=== PATIENT | female | born 1965 | race Caucasian/White ===

== ENCOUNTER 2017-05-26 08:37 | Outpatient (CLI) | END 2017-05-26 08:38 | disposition home or self-care (01) | LOC: RAD 08:37 | PROVIDERS: ATTEND Emergency Medicine | DX: Z12.31 Encounter for screening mammogram for malignant neoplasm of breast (principal) | CPT/HCPCS: 77067 ==

== ENCOUNTER 2017-05-29 07:04 | Outpatient (CLI) ==
[2017-05-29 07:20] LABS: BASOPHILS # (AUTO) 0.1 K/uL (0-0.2); BASOPHILS % (AUTO) 2.1 % (0.0-3.0); EOSINOPHILS % (AUTO) 15.6 % (0.0-7.0); HEMATOCRIT 42.7 % (37.0-47.0); HEMOGLOBIN 14.7 g/dl (12.0-16.0); IMMATURE GRANULOCYTE % (AUTO) 0.3 % (0.0-5.0); LYMPHOCYTES # (AUTO) 1.7 K/uL (0.60-3.4); LYMPHOCYTES % (AUTO) 27.5 (10.0-50.0); MEAN CORPUSCULAR HEMOGLOBIN 30.9 pg (27.0-31.0); MEAN CORPUSCULAR HGB CONC 34.4 (31.8-35.4); MEAN CORPUSCULAR VOLUME 89.9 fl (81.0-99.0); MONOCYTES # (AUTO) 0.4 K/uL (0.4-2.0); NEUTROPHILS % (AUTO) 47.5; PLATELET COUNT 289 10^3/uL (140-440); RED BLOOD COUNT 4.75 10^6/ul (4.20-5.40); WHITE BLOOD COUNT 6.29 K/ul (4.6-10.2)
[2017-05-29 08:00] LABS: ALBUMIN 3.5 g/dL (3.4-5.0); ALBUMIN/GLOBULIN RATIO 1.03; ANION GAP 14.1; BILIRUBIN,TOTAL 0.47 mg/dL (0.00-1.20); BUN/CREATININE RATIO 13.92; CALCIUM 9.5 mg/dL (8.2-10.2); CHOL/HDL RATIO 4.4 (4.5-5.5); CREATININE 0.79 mg/dL (0.60-1.30); POTASSIUM 4.1 mmol/L (3.5-5.10); TOTAL PROTEIN 6.9 g/dL (6.4-8.2)
== END 2017-05-29 07:05 | disposition home or self-care (01) ==
LOC: LAB 07:04
PROVIDERS: ATTEND Emergency Medicine
DX: E78.5 Hyperlipidemia, unspecified (principal); I10 Essential (primary) hypertension; E66.9 Obesity, unspecified; G43.109 Migraine with aura, not intractable, without status migrainosus
CPT/HCPCS: 36415; 80053; 80061; 84443; 85025

== ENCOUNTER 2017-10-26 07:21 | Outpatient (CLI) | END 2017-10-26 07:22 | disposition home or self-care (01) | LOC: LAB 07:21 | PROVIDERS: ATTEND Internal Medicine Rheumatology | DX: E55.9 Vitamin D deficiency, unspecified (principal); E53.8 Deficiency of other specified B group vitamins; R53.83 Other fatigue; M19.90 Unspecified osteoarthritis, unspecified site; M79.1 Myalgia; E83.42 Hypomagnesemia; M32.9 Systemic lupus erythematosus, unspecified | CPT/HCPCS: 36415; 82306; 82550; 82553; 82607; 82746; 83735; 84550; 85651; 85705; 86038; 86160; 86162; 86200; 86225; 86226; 86235; 86430 ==

== ENCOUNTER 2017-11-17 15:46 | Outpatient (CLI) | payer OTHER ==
--- NOTE | 2017-11-17 16:29 | DI ---
EXAM: Radiographs, right shoulder HISTORY: Right shoulder pain. COMPARISON: None available. TECHNIQUE: Three views. FINDINGS: Bone mineralization is normal. There is no fracture or dislocation. Mild acromioclavicul ar joint space narrowing and spurring noted. No erosions are seen. No focal soft tissue abnormality is seen. IMPRESSION: Mild acromioclavicular osteoarthritis.
--- NOTE | 2017-11-17 16:29 | DI ---
EXAM: Radiographs, right knee HISTORY: Right knee pain. COMPARISON: None available. TECHNIQUE: Two views. FINDINGS: Bone mineralization is normal. There is no fracture or dislocation. The joint spaces are maintained. No focal soft tissue abnormality is seen. IMPRESSION: No abnormality of the right knee.
--- NOTE | 2017-11-17 16:29 | DI ---
EXAM: Radiographs, left shoulder HISTORY: Left shoulder pain. COMPARISON: None available. TECHNIQUE: Three views. FINDINGS: Bone mineralization is normal. No fracture or dislocation identified. Mild acromioclavic ular joint space narrowing and spurring noted. No erosions are seen. Soft tissues are unremarkable. IMPRESSION: Mild acromioclavicular osteoarthritis.
--- NOTE | 2017-11-17 16:30 | DI ---
EXAM: Radiographs, left knee HISTORY: Left knee pain. COMPARISON: None available. TECHNIQUE: Two views. FINDINGS: Bone mineralization is normal. Joint spaces are maintained although there is mild medial compartment marginal osteophyte formation. No erosions are seen. Soft tissues are unremarkable. IMPRESSION: Mild medial compartment osteoarthritis.
== END 2017-11-17 15:47 | disposition home or self-care (01) ==
LOC: RAD 15:46
PROVIDERS: ATTEND Internal Medicine Rheumatology
DX: M25.50 Pain in unspecified joint (principal)

== ENCOUNTER 2017-12-19 15:57 | Outpatient (CLI) | payer OTHER | END 2017-12-19 15:58 | disposition home or self-care (01) | LOC: LAB 15:57 | PROVIDERS: ATTEND Internal Medicine Rheumatology | DX: Z51.81 Encounter for therapeutic drug level monitoring (principal) | CPT/HCPCS: 36415; 80048; 80076; 85027 ==

== ENCOUNTER 2017-12-22 15:01 | Outpatient (CLI) ==
--- NOTE | 2017-12-22 16:13 | DI ---
Exam: Two x-rays of the right hand. Comparison: None available. Reason for exam: Pain. FINDINGS: No acute fracture or malalignment. The joint spaces are well maintained. No unexplained calcific soft tissue density or radiopaque retained foreign body. Impression: No acute fracture or malalignment in the right hand
--- NOTE | 2017-12-22 16:15 | DI ---
EXAM: Right wrist two view HISTORY: Pain COMPARISON: None FINDINGS: The bones are normal. The joints are normal. No focal soft tissue abnormality. IMPERSSION: Normal examination.
--- NOTE | 2017-12-22 16:18 | DI ---
EXAM: Left wrist two view HISTORY: Pain COMPARISON: None FINDINGS: The bones are normal. The joints are normal. No focal soft tissue abnormality. IMPERSSION: Normal examination.
--- NOTE | 2017-12-22 16:42 | MRI ---
EXAM: MRI lumbar spine without IV contrast. DATE: 12/22/2017. HISTORY: Lumbar back pain. TECHNIQUE: Sagittal and axial T1W and T2W sequences of the lumbar spine along with sagittal IR and c oronal T2W sequences were obtained using 1.2 Cuca magnet. No IV contrast. COMPARISON: None. FINDINGS: There are five umq-ata-umblplp lumbar vertebral. Minor rightward curvature of the lumbar spine is observed. A 2.2 mm anterior subluxation of L4 relative to L5 is noted. No other subluxatio n, acute fracture, osseous malignancy, or pars interarticularis defect is identified. Lumbar vertebr a are normal in height. Bone marrow signal is normal. Lumbar intervertebral discs are normal in hei ght. No acute sacral fracture or stress reaction is identified. SI joints are unremarkable. Within the spinal canal and the S2 level, there is a T2W bright, T1W dark, 14 x 18 mm Tarlov cyst. Conus m edullaris terminates at L1-2. Visible spinal cord is normal. No retroperitoneal lymphadenopathy, paraspinal mass, or aortic aneurysm is detected. Psoas muscles a re normal. Posterior paraspinal muscles are symmetric bilaterally. A T2W bright, T1W dark, 6 mm foc us posterior to the right L5-S1 facet is likely the synovial cyst vs ganglion cyst. Visible portions of the liver, spleen, adrenal glands and kidneys are limited by breathing motion artifacts, but reve al no distinct neoplasm. Segmental analysis: T11-12: Normal. T12-L1: Minimal posterior disc bulge and mild left facet arthropathy do not cause central stenosis o r foraminal stenosis. L1-2: Minimal posterior to foraminal disc bulge causes minimal bilateral foraminal encroachment. No central canal stenosis. L2-3: Minor posterior disc bulge, abundant dorsal epidural fat, and mild facet arthropathy cause mil d central canal stenosis. Each foramen is patent. L3-4: Minor concentric disc bulge, abundant dorsal epidural fat, and mild facet arthropathy cause mo derate/marked central canal stenosis and slight narrowing at the opening to the right foramen. L4-5: Minor anterior subluxation of L4, small concentric disc bulge, moderate bilateral facet arthro ines, moderate ligamentum flavum hypertrophy and abundant dorsal epidural fat cause marked central c anal stenosis and moderate narrowing at the opening to each foramen. There are small bilateral facet effusions. L5-S1: Normal, except for mild bilateral facet arthropathy. IMPRESSIONS: 1. L-spine minor rightward curvature, minor facet arthropathy, and multilevel minor DDD. 2. Multilevel foraminal narrowing, most marked at L4-5. No nerve root compression. 3. Multilevel central canal stenoses (L2-3: Mild. L3-4: Moderate/marked. L4-5: Marked). 4. Benign Tarlov cyst in the sacral canal at S2. 5. Synovial cyst vs ganglion cyst near the right L5-S1 facet.
--- NOTE | 2017-12-22 16:52 | DI ---
EXAM: Left hand two view HISTORY: Pain COMPARISON: None FINDINGS: The bones are normal. The joints are normal. No focal soft tissue abnormality. IMPERSSION: Normal examination.
== END 2017-12-22 15:02 | disposition home or self-care (01) ==
LOC: RAD 15:01
PROVIDERS: ATTEND Internal Medicine Rheumatology
DX: M54.2 Cervicalgia (principal); M54.5 Low back pain; R51 Headache; M19.90 Unspecified osteoarthritis, unspecified site

== ENCOUNTER 2017-12-26 15:10 | Outpatient (CLI) | payer OTHER ==
--- NOTE | 2017-12-27 14:40 | MRI ---
EXAM: Cervical spine MRI without contrast. HISTORY: Neck pain. COMPARISON: None. TECHNIQUE: Multiplanar, multisequence MR images were acquired of the cervical spine without contrast . FINDINGS: The craniocervical junction is normal and the cervical cord is unremarkable. Canal diamet er is developmentally narrow. There is minor mid cervical dextroscoliosis centered at C5-6 and strai ghtening of the usual cervical lordosis. There is 2 mm anterolisthesis of C3 on C4 and minor degener ative endplate changes. There is osteophytosis with disc space narrowing and degenerative endplate ch anges at C4-5 and C5-6. Ventral spondylosis present at C6-7. The cervical vertebra are normal in he ight and intrinsic bone marrow signal. There are no paravertebral masses. Visualized lung apices ar e clear. C2-3: The intervertebral disc is normal. Mild left hypertrophic facet arthropathy is present with m ild left neural foraminal stenosis. C3-4: There is anterolisthesis of C3 on C4 and there is a posterior disc osteophyte complex that is more prominent in the midline. Moderate left hypertrophic facet arthropathy is present with small de generative cysts and irregularity of the articular surfaces. There is mild spinal stenosis and mild right and moderately severe left neural foraminal stenosis. AP diameter of the thecal sac is 9 mm. C4-5: There is a diffuse disc osteophyte complex with a more focal right paracentral component and a small disc protrusion that indents the right cord without edema. Bilateral uncovertebral hypertrophy and mild left hypertrophic facet arthropathy is present. There is mild spinal stenosis and severe l eft and mild to moderate right neural foraminal stenosis. AP diameter of the thecal sac is 7.9 mm. C5-6: There is a posterior disc osteophyte complex and broad-based superimposed central disc protrus ion that mildly indents the cervical cord. Bilateral uncovertebral hypertrophy is present and there is mild to moderate central canal stenosis and probably moderately severe bilateral foraminal stenosi s. AP diameter thecal sac is 6 mm. C6-7: There is a diffuse disc bulge, bilateral uncovertebral hypertrophy and mild right minor left f acet arthropathy. There is mild spinal stenosis at mild bilateral foraminal stenosis. C7-T1: The intervertebral disc is normal. Mild right and mild left facet arthropathy is present. T here is mild right and moderate left foraminal stenosis. IMPRESSION: 1. Mild to moderate cervical degenerative spondylosis with mild C3-4 and C4-5 and mild to moderate C 5-6 spinal stenosis. 2. Small disc herniations C4-5 and C5-6. 3. Multilevel foraminal stenosis.
== END 2017-12-26 15:11 | disposition home or self-care (01) ==
LOC: RAD 15:10
PROVIDERS: ATTEND Internal Medicine Rheumatology
DX: M54.2 Cervicalgia (principal); M54.5 Low back pain; R51 Headache

== ENCOUNTER 2018-02-15 15:25 | Outpatient (CLI) ==
--- NOTE | 2018-02-15 16:58 | MRI ---
EXAM: MRI brain without IV contrast. DATE: 02/15/2018. HISTORY: Headaches. TECHNIQUE: Sagittal T1W, axial T2W, axial FLAIR, axial T1W, axial DWI, and coronal T2W GRE sequences of the brain were obtained using 1.2 Cuca magnet. No IV contrast. COMPARISON: Report from MRI brain to 29 November 2004 was reviewed. FINDINGS: The ventricles are normal in size and configuration. Some cerebral sulci (primarily front al and parietal lobes) are somewhat prominent due to involutional change. No midline shift, mass eff ect or abnormal extra-axial fluid collection is apparent. No acute infarct, hemorrhage or neoplasm i s identified. Minimal T2W/FLAIR hyperintensity is observed in the white matter abutting the anterior horn and body of each lateral ventricle. A few 2-5 mm, T2W/FLAIR bright foci are scattered within t he subcortical white matter bilaterally. The curry - white matter differentiation is normal. The 7th /8th cranial nerve complexes, cerebellopontine angles, brainstem, and visible cervical spinal cord ar e normal. There is no cerebellar tonsillar ectopia. The pituitary gland is normal in size and signa l. Corpus callosum is normal in size and configuration. Flow voids are present in the major intracr anial arteries and in the dural venous sinuses. No aneurysm or AVM. No definitive dural venous sinu s thrombosis is apparent. T2W/FLAIR bright, 7.8 x 9.5 x 14 mm focus in the left skull base (best see n on axial image #3) is compared to a dark focus on the opposite side. This likely represents a masha on of slow flowing blood rather than vascular occlusion. No orbit abnormality is identified. The ma stoid air cells are unremarkable. There is no acute sinusitis. No neck mass or lymphadenopathy is d etected. No calvarial neoplasm or acute fracture is evident. IMPRESSIONS: 1. No acute infarct, hemorrhage, mass or hydrocephalus. 2. Minimal supratentorial small vessel disease. 3. Probable slow flowing blood in prominent vein near the left jugular foramen. If symptoms warrant further evaluation, CT venogram or MRV could be obtained for further evaluation.
== END 2018-02-15 15:26 | disposition home or self-care (01) ==
LOC: RAD 15:25
PROVIDERS: ATTEND Internal Medicine Rheumatology
DX: M54.2 Cervicalgia (principal); M54.5 Low back pain; R51 Headache

== ENCOUNTER 2018-02-16 08:29 | Outpatient (CLI) | END 2018-02-16 08:30 | disposition home or self-care (01) | LOC: LAB 08:29 | PROVIDERS: ATTEND Internal Medicine Rheumatology | DX: Z51.81 Encounter for therapeutic drug level monitoring (principal); Z79.899 Other long term (current) drug therapy | CPT/HCPCS: 36415; 80048; 80076; 82040; 82247; 82248; 84075; 84155; 84450; 84460; 85027 ==

== ENCOUNTER 2018-03-26 15:07 | Outpatient (CLI) ==
--- NOTE | 2018-03-27 10:19 | MRI ---
EXAM: MRA brain without IV contrast. DATE: 26 March 2018. HISTORY: Cerebral vascular occlusion. TECHNIQUE: 3-D yygn-zf-jqowdu sequence centered on the [place] was performed without IV contra st, using 1.2 Cuca magnet. 3-D MIP reconstruction images of the intracranial arteries were produced in addition to the axial source images. NOTE: Degree of arterial vascular stenosis is determined using NASCET criteria. COMPARISON: MRI the 26 March 2018. MRI brain 02/15/2018. FINDINGS: Neither vertebral artery is dominant. Vertebrobasilar arterial system is tortuous. Basil ar artery is normal in diameter, without focal stenosis, dissection or aneurysm. Right anterior infe rior cerebellar artery is intact. Each superior cerebellar artery is intact. Right and left PCOM ar e not visible.. The ACOM is intact. Symmetric bilateral blood flow is evident within the anterior, middle, and posterior cerebral artery distributions peripherally. No intracranial aneurysm or AVM is detected. Both petrous ICAs are normal. Right cavernous ICA C2/C1 segment junction demonstrates fl ow artifact versus less 50% luminal narrowing x 1.5 mm length. Left cavernous ICA C2 segment demonst rates apparent luminal narrowing to 2.7 mm diameter compared to C1 segment diameter of 3.5 mm. The ventricles are normal in size configuration. Some cerebral sulci (especially frontal and parieta l lobes) are minimal to mildly prominent due to involutional change. No midline shift, herniation, o r loculated extra-axial fluid collection is apparent. No definitive acute infarct, hemorrhage, or ne oplasm is identified in the brain. Santillan - white matter differentiation is intact. A few 2-5 mm diam eter, T2W bright foci are redemonstrated in the subcortical white matter bilaterally. prominent Virc how-Rafael spaces are present in the subcortical white matter and basal ganglia bilaterally. T2W brig ht focus anterior inferior to the left cerebellar hemisphere is unchanged from February 2018 and appears to represent a prominent vein. IMPRESSIONS: 1. Intact ACOM. 2. Atretic bilateral PCOM. 3. No intracranial aneurysm or AVM. 4. Normal basilar and vertebral arteries. 5. Bilateral cavernous ICA flow artifact vs mild (< 50%) stenoses. 6. Minimal supratentorial small vessel disease. 7. No acute infarct, hemorrhage, mass or hydrocephalus. 8. Apparent slow flowing blood in a prominent vein near the skull base.
--- NOTE | 2018-03-27 10:36 | MRI ---
EXAM: MRV brain without IV contrast. DATE: 26 March 2018. HISTORY: Cerebral venous thrombosis. TECHNIQUE: 2-D cevk-ir-kugaws sequences and coronal and sagittal planes centered on the intracranial veins were performed without IV contrast, using 1.2 Cuca magnet. 3-D MIP reconstruction images of the cortical veins and dural venous sinuses were produced in addition to the axial source images. COMPARISON: MRA brain 2017. MRI brain 02/15/2018. FINDINGS: Superior sagittal sinus, torcula, vein of Jovan, and internal cerebral veins are normal. A 9.4 mm length of the straight sinus (superiorly) demonstrates flow void on reconstruction images, b ut appears to have a narrow band of flow signal on a source images. The transverse sinuses are simil ar in size bilaterally. No definitive transverse sinus or sigmoid sinus thrombosis or occlusion is d etected. The cortical veins are normal in size, without visible thrombosis or occlusion. The previou sly identified structure at the anteroinferior margin of the left cerebellum/skull base does not demo nstrate definitive flow signal. Source images reveal no midline shift, mass effect or abnormal extra-axial fluid collection. No defi nitive acute infarct, hemorrhage, or neoplasm is seen within the brain. Santillan - white matter differen tiation is grossly normal. There is no definitive cerebellar tonsillar ectopia. Corpus callosum is grossly normal in size and configuration. IMPRESSIONS: 1. Normal bilateral cortical veins. 2. Flow artifact vs narrow diameter of the straight sinus (superiorly), without definitive thrombosi s. 3. No other evidence of dural venous sinuses thrombosis or occlusion. 4. Previously identified structure near the chuy-inferior margin of the left cerebellum does not d emonstrate flow signal. This does not exclude a thrombosed vein or very slow flow. A malignant seen is unlikely. However, if symptoms warrant further, a contrast-enhanced MRI could be obtained now or as a 6 months followup. 5. No intra-axial mass, hemorrhage, or hydrocephalus.
== END 2018-03-26 15:08 | disposition home or self-care (01) ==
LOC: RAD 15:07
PROVIDERS: ATTEND Internal Medicine Rheumatology
DX: I67.6 Nonpyogenic thrombosis of intracranial venous system (principal)

== ENCOUNTER 2018-04-02 12:42 | Outpatient (CLI) ==
--- NOTE | 2018-04-02 14:34 | DI ---
EXAM: Two views of the chest. History: Acute upper respiratory infection. Findings: Heart size is within normal limits. Lingular subsegmental atelectasis or infiltrate. No appreciable pleural fluid and no pneumothorax. No acute osseous abnormalities. Impression: Lingular subsegmental atelectasis or pneumonia
== END 2018-04-02 12:43 | disposition home or self-care (01) ==
LOC: RAD 12:42
PROVIDERS: ATTEND Emergency Medicine
DX: J06.9 Acute upper respiratory infection, unspecified (principal)

== ENCOUNTER 2018-04-04 10:49 | Inpatient (IN) ==
[2018-04-04] MEDS ORDERED: TYLENOL PO PRN (12:02)
[2018-04-04] MEDS ORDERED: CODEINE PO PRN (12:04)
[2018-04-04] MEDS ORDERED: PROMETHAZINE HCL PO PRN (12:04)
[2018-04-04] MEDS ORDERED: [UNRECOGNIZED DRUG - OTHER] PO PRN (12:04)
[2018-04-04] MEDS ORDERED: NON-FORMULARY MEDICATION (Sumatriptan Succinate [Imitrex] 100 MG) PO SCH (12:15)
[2018-04-04] MEDS ORDERED: IMITREX PO PRN (12:19)
[2018-04-04] MEDS ORDERED: CATAPRES PO PRN (12:30)
[2018-04-04] MEDS: DUONEB NEB SCH ×3 (12:31→22:50)
[2018-04-04] MEDS: SODIUM CHLORIDE 1,000 ML IV SCH (12:53)
[2018-04-04] MEDS: ROCEPHIN 1 GM in SODIUM CHLORIDE 50 ML IV SCH (12:53)
[2018-04-04] MEDS: SOLU-MEDROL 40 MG IVP SCH ×2 (13:04→21:03)
[2018-04-04] MEDS: LOVENOX SUBCUT SCH (13:07)
[2018-04-04 13:16] VITALS: BMI 36.0
[2018-04-04] MEDS: LYRICA PO SCH ×2 (15:44→21:04)
[2018-04-04] MEDS: COREG PO SCH (17:43)
[2018-04-04] MEDS: PHENERGAN WITH CODEINE 6.25/10 MG/5 ML PO PRN (19:43)
[2018-04-04] MEDS ORDERED: NON-FORMULARY MEDICATION (Carvedilol [Carvedilol] 25 MG) PO SCH (21:00)
[2018-04-04] MEDS ORDERED: FIORICET PO PRN (21:00)
[2018-04-04] MEDS: PRAVACHOL PO SCH (21:03)
[2018-04-04] MEDS: CALCIUM 500 + VIT D 200 MG TABLET PO SCH (21:03)
[2018-04-04] MEDS: FLEXERIL PO SCH (21:04)
[2018-04-05] MEDS: SODIUM CHLORIDE 1,000 ML IV SCH (02:58)
[2018-04-05] MEDS: DUONEB NEB SCH ×4 (04:55→23:06)
[2018-04-05] MEDS: PROTONIX PO SCH (05:43)
[2018-04-05] MEDS: SOLU-MEDROL 40 MG IVP SCH ×3 (05:43→21:12)
[2018-04-05] MEDS: COREG PO SCH ×2 (08:44→17:04)
[2018-04-05] MEDS: MULTIVITAMIN TABLET PO SCH (08:44)
[2018-04-05] MEDS: NORVASC PO SCH (08:44)
[2018-04-05] MEDS: VITAMIN C PO SCH (08:45)
[2018-04-05] MEDS: FOLIC ACID PO SCH (08:45)
[2018-04-05] MEDS: LYRICA PO SCH ×3 (08:46→21:12)
[2018-04-05] MEDS: ROCEPHIN 1 GM in SODIUM CHLORIDE 50 ML IV SCH (08:46)
[2018-04-05] MEDS: LOVENOX SUBCUT SCH (08:47)
[2018-04-05] MEDS ORDERED: NON-FORMULARY MEDICATION (Esomeprazole Magnesium [Nexium] 40 MG) PO SCH (09:00)
[2018-04-05] MEDS ORDERED: NON-FORMULARY MEDICATION (Cholecalciferol (Vitamin D3) [Vitamin D3] 1,000 UNIT) PO SCH (09:00)
[2018-04-05] MEDS ORDERED: ASCORBIC ACID 100 MG PO SCH (09:00)
[2018-04-05] MEDS ORDERED: FLEXERIL PO SCH (09:00)
[2018-04-05] MEDS ORDERED: [UNRECOGNIZED DRUG - OTHER] PO SCH (09:00)
[2018-04-05] MEDS ORDERED: PRAVACHOL PO SCH (09:00)
[2018-04-05] MEDS ORDERED: NON-FORMULARY MEDICATION (Calcium Carbonate/Vitamin D3 [Caltrate 600 Plus D3 Tablet] 1 EAC PO SCH (09:00)
[2018-04-05] MEDS ORDERED: VITAMIN D PO SCH (09:00)
[2018-04-05] MEDS ORDERED: CALCIUM 500 + VIT D 200 MG TABLET PO SCH (09:00)
[2018-04-05] MEDS ORDERED: ARAVA PO SCH (09:00)
[2018-04-05] MEDS: PHENERGAN WITH CODEINE 6.25/10 MG/5 ML PO PRN ×2 (10:20→21:12)
--- NOTE | 2018-04-05 11:46 | HP ---
DATE OF SERVICE: 04/04/18 CHIEF COMPLAINT: Cough HISTORY OF PRESENT ILLNESS: The patient was seen and examined two days ago for upper respiratory infection. Chest x-ray showed the pneumonia. Taking antibiotics Keflex and Prednisone. Coughing and congestion is getting worse and the patient has more wheezing. We will admitted the patient for the community acquired pneumonia for IV antibiotics and the breathing treatments. REVIEW OF SYSTEMS: CONSTITUTIONAL: No fever, no chills. HEENT: Normal. ENDOCRINE: No weight gain; no weight loss. CVS: No chest pain. No PND, no orthopnea. No shortness of breath. No PND, no orthopnea. RESPIRATORY: Cough, Congestion. No hemoptysis. GI: No nausea, no vomiting. No abdominal pain. No melena. : No hematuria. No polyuria. MUSCULOSKELETAL: No joint swelling. PSYCHIATRIC: Not anxious. No depression. No suicidal thoughts. No homicidal thoughts. SKIN: Intact, no open lesions. PAST MEDICAL HISTORY: Arthritis Breast nodule Cervical CA Hyperlipidemia Hypertension Hyperthyroidism PAST SURGICAL HISTORY: Lasik x2 Appendectomy Cholecystectomy Hysterectomy Breast Biopsy PERSONAL HISTORY: Never smoker, occasional alcohol use and denies any illicit drug use. MEDICATIONS: ProAir Multivitamin Vitamin D3 Vitamin C Nexium Caltrate Clonidine Pravastatin Imitrex Cyclobenzaprine Carvedilol Vitamin B12 Folic acid Prednisone Butalb-Acetaminophen Amlodipine Lyrica Areva Prednisone Keflex Promethazine/Codeine ALLERGIES: No known allergies PHYSICAL EXAMINATION: HEENT: Atraumatic, normocephalic. No scleral icterus. NECK: Supple. No JVD, no bruit. No lymphadenopathy. No thyromegaly. HEART: S1, S2 normal. No murmur. No cyanosis or clubbing. No ascites. LUNGS: Clear to auscultation. No rales or rhonchi. ABDOMEN: Soft, nontender. Bowel sounds are active. No CVA tenderness. No rigidity or guarding. EXTREMITIES: No pedal edema. No cyanosis or clubbing MUSCULOSKELETAL: Normal joints, no swelling. NEUROLOGIC: The patient is SKIN: Intact; no open lesions. LYMPHATIC: No lymph nodes palpable. ASSESSMENT: 1. Community acquired pneumonia 2. Upper respiratory tract infection 3. Thyroid nodule 4. Essential hypertension 5. Dyslipidemia 6. Obesity 7. Migraine with aura and without status migrainosus, not intractable 8. Gastroesophageal reflux disease without esophagitis 9. Mild intermittent asthmatic bronchitis without complication. PLAN: 1. The patient admitted due to failure outpatient treatment. 2. IV antibiotics 3. Breathing treatments TIME SPENT: MORE THAN 70 minutes MTDD
--- NOTE | 2018-04-05 12:03 | CT ---
EXAM: CT of the chest without contrast History: Cough, short of breath Comparison: Chest radiograph 04/02/2018 Technique: Multiplanar CT images through the thorax were obtained without the administration of IV c ontrast Findings: Heart size is within normal limits. Great vessels are unremarkable. No pericardial effus ion. No pathologically enlarged axillary lymph nodes. No pneumothorax and no pleural fluid. Bibasi lar subsegmental atelectasis. No consolidated pneumonia. No suspicious lung nodules or lung masses. Within the visualized upper abdomen, status post cholecystectomy. No acute osseous abnormalities. Impression: Bibasilar subsegmental atelectasis but no evidence for pneumonia.
[2018-04-05] MEDS: CALCIUM 500 + VIT D 200 MG TABLET PO SCH (21:12)
[2018-04-05] MEDS: FLEXERIL PO SCH (21:12)
[2018-04-05] MEDS: PRAVACHOL PO SCH (21:12)
[2018-04-06] MEDS: DUONEB NEB SCH (05:00)
[2018-04-06] MEDS: SOLU-MEDROL 40 MG IVP SCH (06:00)
[2018-04-06] MEDS: SODIUM CHLORIDE 1,000 ML IV SCH (06:00)
[2018-04-06] MEDS: PROTONIX PO SCH (06:00)
--- NOTE | 2018-04-06 09:01 | PN ---
DATE OF SERVICE: 04/05/18 SUBJECTIVE: The patient is admitted with community acquired pneumonia, failed as outpatient. She is still coughing, congestion, shortness of breath with minimal exertion. REVIEW OF SYSTEMS: CONSTITUTIONAL: No fever, no chills. HEENT: Normal. ENDOCRINE: No weight gain, no weight loss. CVS: No angina symptoms. No CHF symptoms. No palpitations. No atypical chest pain for CAD. Shortness of breath with minimal exertion. No PND, no orthopnea. RESPIRATORY: Cough and congestion. No hemoptysis. GI: No nausea, no vomiting. No abdominal pain. : No hematuria. No polyuria. MUSCULOSKELETAL: No joint swelling. PSYCHIATRIC: Not anxious. No depression. No suicidal thoughts. No homicidal thoughts. SKIN: Intact. No rash. PHYSICAL EXAMINATION: V/S: BP 132/90, respiratory rate 16, heart rate 87, temperature 97.7, saturation 97% on room air. HEENT: Normocephalic, atraumatic. Mucosa dry. NECK: Supple. No JVD, no carotid bruit. No lymphadenopathy. LUNGS: Decreased breath sounds with basilar crackles. HEART: S1, S2 normal. No S3. No murmur, gallop or regurgitation. ABDOMEN: Soft, nontender. Bowel sounds active. No rigidity. No rebound or guarding. No CVA tenderness. EXTREMITIES: No cyanosis, clubbing or pedal edema. MUSCULOSKELETAL: No joint swelling. NEUROLOGIC: Awake, alert. No focal deficit. LYMPHATIC: No lymph nodes palpable. SKIN: Intact. LABS: White count 9.04, hemoglobin 13.9, hematocrit 42.4, platelets 324. Sodium 140, potassium 4.2, chloride 107, bicarb 22, BUN 17, creatinine 0.70, glucose 145. ASSESSMENT: 1. COMMUNITY ACQUIRED PNEUMONIA, FAILED OUTPATIENT TREATMENT 2. HISTORY OF MITRAL VALVE PROLAPSE 3. DYSLIPIDEMIA 4. HYPERTENSION 5. HEADACHES 6. RHEUMATOID ARTHRITIS 7. OSTEOARTHRITIS 8. DJD SPINE 9. DEPRESSION/ANXIETY PLAN: 1. Continue Rocephin 2. Solu-Medrol 3. Duonebs 4. Lovenox for DVT prophylaxis TIME SPENT: More than 35 minutes MTDD
[2018-04-06] MEDS: ROCEPHIN 1 GM in SODIUM CHLORIDE 50 ML IV SCH (09:07)
[2018-04-06] MEDS: FOLIC ACID PO SCH (09:07)
[2018-04-06] MEDS: VITAMIN C PO SCH (09:07)
[2018-04-06] MEDS: NORVASC PO SCH (09:08)
[2018-04-06] MEDS: COREG PO SCH (09:08)
[2018-04-06] MEDS: LYRICA PO SCH (09:08)
[2018-04-06] MEDS: LOVENOX SUBCUT SCH (09:08)
[2018-04-06] MEDS: MULTIVITAMIN TABLET PO SCH (09:14)
[2018-04-06 10:01] VITALS: BP 132/85; TEMP 97.7
--- NOTE | 2018-04-06 17:47 | PCM.HOSP ---
- Initial Hospital Care [id number] 70 Minutes Bedside ([id number]): 04/04 - Subsequent Care [id number] 35 Minutes per Day ([id number]): 04/05 - Hospital Discharge [id number] More than 30 Minutes ([id number]): 04/06
--- NOTE | 2018-04-11 10:47 | DS ---
DATE OF SERVICE: 04/06/18 FINAL DIAGNOSIS: 1. Community acquired pneumonia, outpatient failure treatment 2. Hypertension 3. GERD 4. Dyslipidemia 5. Arthritis 6. History of migraine 7. Thyroid nodule 8. Rheumatoid arthritis 9. Osteoarthritis 10.DJD spine 11.History of mitral valve prolapse 12.Cholecystectomy 13.Appendectomy 14.Hysterectomy 15.Cervical cancer 16.Breast biopsy DISCHARGE INSTRUCTIONS: Discharge the patient home. Followup in the [facility] within 5-7 days. Continue the rest of the home medications. MEDICATIONS AT DISCHARGE: Norvasc Coreg Keflex Clonidine Cyclobenzaprine Pravastatin Prednisone Sumatriptan Albuterol Ascorbic acid Caltrate Cholecalciferol Omeprazole Folic acid Multivitamin Prednisone Lyrica Phenergan with codeine cough syrup NEW PRESCRIPTIONS: Keflex Prednisone DUO NEBS DIET INSTRUCTIONS: Cardiac and healthy ACTIVITY: As much as tolerated DISEASE SPECIFIC EDUCATION: Pneumonia and need for the pneumonia vaccination been discussed and verbalized understanding. HOSPITAL COURSE: Betsy Griffin who came initially to the office for the cough, congestion and shortness of breath. Chest x-ray was done as outpatient and showed the pneumonia. Was started initially on the Keflex and Prednisone and did not feel better. With more coughing and congestion so the patient admitted to the hospital directly and started on the Rocephin, breathing treatments and steroids which did help the patient well. Gradually she started feeling better up and about walking. Still was coughing and congested. Repeat CT scan done which showed the betterment of the pneumonia. As the patient been improved but still has some exertional shortness of breath at that time the patient being discharged home. TIME SPENT: MORE THAN 65 MINUTES MTDD
== END 2018-04-06 10:46 | disposition home or self-care (01) | DRG 153 ==
LOC: MEDSURG A 10:49
PROVIDERS: ADMIT Emergency Medicine; ATTEND Emergency Medicine
DX: J06.9 Acute upper respiratory infection, unspecified (principal); E04.1 Nontoxic single thyroid nodule; E78.5 Hyperlipidemia, unspecified; E66.9 Obesity, unspecified; I10 Essential (primary) hypertension; G43.109 Migraine with aura, not intractable, without status migrainosus; K21.9 Gastro-esophageal reflux disease without esophagitis; J45.909 Unspecified asthma, uncomplicated; M19.90 Unspecified osteoarthritis, unspecified site; M47.9 Spondylosis, unspecified; M06.9 Rheumatoid arthritis, unspecified; R06.02 Shortness of breath; F41.8 Other specified anxiety disorders
CPT/HCPCS: 36415; 80053; 85025; 93005; 93010; 94640

== ENCOUNTER 2018-05-15 10:23 | Outpatient (CLI) | payer OTHER ==
--- NOTE | 2018-05-17 00:12 | MRI ---
EXAM: Brain MRI without and with contrast. HISTORY: Cerebral venous sinus thrombosis. COMPARISON: Brain MRI 02/15/2018. TECHNIQUE: Multiplanar, multisequence MR images were acquired of the brain before and after administ ration of intravenous contrast. A gadolinium enhanced 3-D MPRAGE Sequence was not obtained. FINDINGS: The midline structures are central and the craniocervical junction is unremarkable. The v entricles and sulci are normal in size and configuration. There are no abnormal extra-axial fluid co llections. The brain parenchyma has no diffusion restriction to suggest acute hypoperfusion or infarction. Nneka ral small scattered T2 hyperintensities are present in the supratentorial white matter compatible wit h minimal leukomalacia. There are no abnormal foci of dark gradient echo signal. After administrati on of gadolinium, no enhancing lesions are identified. The corpus callosum is normal. The pituitary gland is normal in size and has homogeneous contrast enhancement. The infundibulum is midline. There are no intraorbital masses. Paranasal sinuses, middle ears and mastoids are unremarkable. Flow voids are present in the major intracranial arteries. The anterior half of the superior sagitta l sinus is very small and gradually enlarges over 1 cm to the junction of the anterior half with the posterior half. There is a mildly small posterior half of the superior sagittal sinus and there is d ark T1 and T2 signal flow void in the sinus. Flow voids are present in the transverse dural sinuses, sigmoid sinuses and proximal internal jugular veins bilaterally. No filling defects are present in the sinuses to indicate thrombosis. There is a prominent vein near the left jugular foramen which has intermediate to slightly bright T1 and mildly bright T2 signal that may reflect slow flowing blood. T IMPRESSION: 1. No dural sinus thrombosis. There is no intracranial hemorrhage or acute cerebral infarct. 2. Minimal leukomalacia likely due to chronic ischemic small vessel disease.
== END 2018-05-15 10:24 | disposition home or self-care (01) ==
LOC: RAD 10:23
PROVIDERS: ATTEND Internal Medicine Rheumatology
DX: Z51.81 Encounter for therapeutic drug level monitoring (principal); Z79.899 Other long term (current) drug therapy; G08 Intracranial and intraspinal phlebitis and thrombophlebitis
CPT/HCPCS: 36415; 82565

== ENCOUNTER 2018-05-30 15:46 | Outpatient (CLI) | payer OTHER | END 2018-05-30 15:47 | disposition home or self-care (01) | LOC: LAB 15:46 | PROVIDERS: ATTEND Internal Medicine Rheumatology | DX: Z51.81 Encounter for therapeutic drug level monitoring (principal) | CPT/HCPCS: 36415; 80048; 80076; 85027 ==

== ENCOUNTER 2018-06-04 11:04 | Outpatient (CLI) ==
--- NOTE | 2018-06-04 11:56 | MAMMO ---
EXAM: Bilateral digital screening mammogram (2-D and 3-D) History: Screening Comparison: Bilateral mammogram 05/26/2017 Findings: MLO and CC views of bilateral breasts demonstrate scattered fibroglandular breast parenchy ma. CAD was reviewed by the radiologist. Tomosynthesis was performed. Biopsy clip again seen withi n the right breast. Stable benign nodule within the right breast. There are no developing masses an d no suspicious microcalcifications. Impression: Benign stable mammogram. Recommend followup routine screening mammography in 1 year. BIRADS 2
== END 2018-06-04 11:05 | disposition home or self-care (01) ==
LOC: RAD 11:04
PROVIDERS: ATTEND Family Medicine
DX: Z12.31 Encounter for screening mammogram for malignant neoplasm of breast (principal)
CPT/HCPCS: 77067

== ENCOUNTER 2018-10-02 09:14 | Day surgery (SDC) ==
[2018-10-02] MEDS ORDERED: VERSED ONE (11:11)
[2018-10-02] MEDS ORDERED: SUBLIMAZE ONE (11:11)
[2018-10-02] MEDS ORDERED: DIPRIVAN 20 ML VIAL IVP ONE (11:11)
[2018-10-02 12:04] VITALS: BP 111/71
--- NOTE | 2018-10-03 08:53 | OP ---
INDICATIONS FOR PROCEDURE: 52-year-old female presents for endoscopy and colonoscopy. She was found to have a gastric ulcer in July. She has been treated. She presents for followup endoscopy of that. She was also treated for C. diff. She was having some diarrhea. She states her diarrhea has subsided. She has a past history of adenomatous polyps with her last colonoscopy in 2011. She presents for surveillance colonoscopy. MEDICATIONS: SEE ANESTHESIA NOTES. PROCEDURE: 1. ENDOSCOPY, LIZETTE BIOPSY. 2. COLONOSCOPY. REPORT: The risks, benefits, alternatives and limitations were discussed in detail with the patient. Informed consent was obtained. After adequate sedation was achieved, the video endoscope was introduced in the posterior pharynx and esophagus under direct vision and easily advanced down to the second portion of the duodenum. I then slowly withdrew. The duodenal mucosa appeared unremarkable as did the duodenal bulb. The antrum and body were relatively unremarkable. There was mild erythema present. The prior ulceration had resolved. Two biopsies from the antrum and one from the body obtained for H. Pylori testing. The scope was retroflexed to look at the cardia and fundus which was unremarkable. The scope was anteflexed and withdrawn back through the esophagus which was unremarkable. The patient tolerated the procedure well with stable vital signs and pulse oximetry throughout. The patient's bed was turned. A digital rectal exam revealed good tones, no masses. The colonoscope was introduced into the rectum and was advanced under direct visual guidance to the cecum. The cecum was identified by the appendiceal orifice and IC valves. I then slowly withdrew the scope in circumferential examining the mucosa quite carefully. I looked on the proximal and distal side of folds and flexures as best as possible. I was able to retroflex the scope in the right colon and left colon to increase visualization. The prep was good. The colonic mucosa was unremarkable its entire length including on retroflex view of the anal canal. The withdrawal time was 11 minutes and 30 seconds. The patient tolerated the procedure well with stable vital signs and pulse oximetry throughout. IMPRESSION: 1. RESOLVED GASTRIC ULCER. 2. NORMAL COLONOSCOPY EXAMINATION. RECOMMENDATIONS: 1. Await H. Pylori, if positive will initiate treatment keeping in mind that she recently had C. diff. 2. High fiber diet. 3. Surveillance colonoscopy examination again in 5 years. 4. Will see her back in the office as needed. CC: DR. STAR TAN
== END 2018-10-02 12:50 | disposition home or self-care (01) ==
LOC: SURG 09:14
PROVIDERS: ATTEND Internal Medicine Gastroenterology
DX: Z83.71 Family history of colonic polyps (principal); Z86.010 Personal history of colon polyps; K25.3 Acute gastric ulcer without hemorrhage or perforation
CPT/HCPCS: 87339

== ENCOUNTER 2018-11-30 07:05 | Outpatient (CLI) | END 2018-11-30 07:06 | disposition home or self-care (01) | LOC: LAB 07:05 | PROVIDERS: ATTEND Internal Medicine Rheumatology | DX: Z51.81 Encounter for therapeutic drug level monitoring (principal); Z79.899 Other long term (current) drug therapy | CPT/HCPCS: 36415; 80053; 82248; 85027 ==

== ENCOUNTER 2019-01-09 13:07 | Outpatient (CLI) ==
--- NOTE | 2019-01-09 13:52 | CT ---
EXAM: CT of the chest without contrast History: Right-sided chest pain. Comparison: Chest CT 04/05/2018 Technique: Multiplanar CT images through the thorax were obtained without the administration of IV c ontrast. 3-D reconstructions through the ribs were obtained. Findings: Heart size is normal. No pericardial effusion. No thoracic aortic aneurysm. No patholog ically enlarged thoracic lymph nodes. Mild bibasilar subsegmental atelectasis. Improved compared to the prior study. No consolidated pneumonia. No pleural fluid and no pneumothorax. No suspicious l bossman masses or lung nodules. Within the visualized upper abdomen, status post cholecystectomy. Mildly displaced fracture of the r ight lateral fifth rib. Impression: 1. No acute intrathoracic process. 2. Mildly displaced fracture of the right lateral fifth rib.
== END 2019-01-09 13:08 | disposition home or self-care (01) ==
LOC: RAD 13:07
PROVIDERS: ATTEND General Practice
DX: R07.89 Other chest pain (principal)
CPT/HCPCS: 36415; 80053; 82550; 84484; 85025; 85651; 86140

== ENCOUNTER 2019-01-10 10:44 | Outpatient (CLI) | END 2019-01-10 10:45 | disposition home or self-care (01) | LOC: LAB 10:44 | PROVIDERS: ATTEND General Practice | DX: E78.5 Hyperlipidemia, unspecified (principal); E04.1 Nontoxic single thyroid nodule; M06.9 Rheumatoid arthritis, unspecified; I10 Essential (primary) hypertension; E66.9 Obesity, unspecified; Z79.899 Other long term (current) drug therapy | CPT/HCPCS: 36415; 82306 ==

== ENCOUNTER 2019-01-11 13:20 | Outpatient (CLI) ==
--- NOTE | 2019-01-11 14:48 | DEXA ---
EXAM: BONE DENSITOMETRY HISTORY: Screening for osteoporosis. Fracture. FINDINGS: Exam of the lumbar spine demonstrated a total bone mineral density of 1.299 g/cm2. T score is 1.0. Exam of the hips revealed a total mean bone mineral density of 1.079 g/cm2. Mean hip T score: 0.7 FRAX WHO Fracture Risk Assessment. Ten year probability of fracture (%). Major Osteoporotic Fracture 33.2% Hip Fracture 0.7%. IMPRESSION: 1. Values presented indicate normal bone density of the spine. 2. Values presented indicate normal bone density of the total hips, including the femoral necks.
== END 2019-01-11 13:21 | disposition home or self-care (01) ==
LOC: RAD 13:20
PROVIDERS: ATTEND General Practice
DX: S22.31XD Fracture of one rib, right side, subsequent encounter for fracture with routine healing (principal); R07.89 Other chest pain; M06.9 Rheumatoid arthritis, unspecified; Z78.0 Asymptomatic menopausal state

== ENCOUNTER 2019-03-29 11:53 | Outpatient (CLI) ==
[2019-03-29 12:05] VITALS: BP 142/96; TEMP 97.3
[2019-03-29] MEDS ORDERED: SODIUM CHLORIDE IV ONE ×2 (12:24→13:30)
[2019-03-29] MEDS ORDERED: REMICADE IV ONE ×2 (12:24→13:30)
[2019-03-29] MEDS: REMICADE IV ONE (13:10)
[2019-03-29] MEDS: SODIUM CHLORIDE IV ONE (13:10)
== END 2019-03-29 11:54 | disposition home or self-care (01) ==
LOC: OPMED 11:53
PROVIDERS: ATTEND Internal Medicine Rheumatology
DX: M06.9 Rheumatoid arthritis, unspecified (principal)
CPT/HCPCS: 96365; 96366

== ENCOUNTER 2019-04-12 07:02 | Outpatient (CLI) ==
[2019-04-12] MEDS ORDERED: SODIUM CHLORIDE IV ONE (07:28)
[2019-04-12] MEDS ORDERED: REMICADE IV ONE (07:28)
[2019-04-12 12:39] VITALS: BP 105/70; TEMP 97
== END 2019-04-12 07:03 | disposition home or self-care (01) ==
LOC: OPMED 07:02
PROVIDERS: ATTEND Internal Medicine Rheumatology
DX: M06.9 Rheumatoid arthritis, unspecified (principal)
CPT/HCPCS: 96365; 96366

== ENCOUNTER 2019-07-15 15:38 | Inpatient (IN) ==
[2019-07-15 16:18] VITALS: BMI 37.1
[2019-07-15] MEDS ORDERED: CATAPRES PO PRN (16:50)
[2019-07-15] MEDS ORDERED: FLEXERIL PO PRN (16:50)
[2019-07-15] MEDS ORDERED: NAPROSYN PO PRN (16:50)
[2019-07-15] MEDS ORDERED: REMICADE IV SCH (17:00)
[2019-07-15] MEDS ORDERED: IMITREX PO PRN (17:00)
[2019-07-15] MEDS ORDERED: CARAFATE PO SCH (17:00)
[2019-07-15] MEDS: XOPENEX 0.63 MG NEB SCH ×2 (18:04→23:20)
[2019-07-15] MEDS: COZAAR PO SCH (20:28)
[2019-07-15] MEDS: MUCINEX PO SCH (20:29)
[2019-07-15] MEDS: VALIUM PO SCH (20:29)
[2019-07-15] MEDS: LOPRESSOR PO SCH (20:29)
[2019-07-15] MEDS ORDERED: COREG PO SCH (21:00)
[2019-07-16] MEDS: XOPENEX 0.63 MG NEB SCH (05:05)
[2019-07-16 05:09] VITALS: TEMP 97.8
[2019-07-16] MEDS: PROTONIX PO SCH ×2 (05:44→18:33)
[2019-07-16] MEDS ORDERED: TUSSIONEX PO STA (08:18)
[2019-07-16] MEDS: MUCINEX PO SCH ×2 (08:39→20:03)
[2019-07-16] MEDS: LOPRESSOR PO SCH ×2 (08:39→20:03)
[2019-07-16] MEDS: COZAAR PO SCH ×2 (08:39→20:04)
[2019-07-16] MEDS ORDERED: MULTIVITAMIN TABLET PO SCH (09:00)
[2019-07-16] MEDS ORDERED: ASCORBIC ACID 100 MG PO SCH (09:00)
[2019-07-16] MEDS ORDERED: NON-FORMULARY MEDICATION (Vortioxetine [Trintellix] 10 MG) PO SCH (09:00)
[2019-07-16] MEDS ORDERED: NORVASC PO SCH (09:00)
[2019-07-16] MEDS ORDERED: CATAPRES PO PRN (09:07)
[2019-07-16] MEDS: XOPENEX 1.25 MG NEB SCH ×2 (11:09→17:41)
[2019-07-16] MEDS ORDERED: VITAMIN C PO SCH (11:30)
[2019-07-16] MEDS ORDERED: ALBUTEROL 0.083% NEB NEB STA (14:11)
[2019-07-16] MEDS ORDERED: PULMICORT 0.5 MG/2 ML NEB STA (14:12)
[2019-07-16] MEDS ORDERED: CEPACOL SORE THROAT LOZENGE MUCOUSMEMB PRN (14:24)
[2019-07-16 14:32] VITALS: BP 135/80
[2019-07-16] MEDS ORDERED: MAXIPIME 2 GM/50 ML D5W 2 GM/50 ML BAG IV SCH (20:00)
[2019-07-16] MEDS: VALIUM PO SCH (20:03)
[2019-07-16] MEDS ORDERED: TUSSIONEX PO SCH (21:00)
[2019-07-17] MEDS ORDERED: NON-FORMULARY MEDICATION (Vortioxetine [Trintellix] 20 MG) PO SCH (09:00)
[2019-07-22] MEDS ORDERED: VITAMIN B-12 IM SCH (09:00)
--- NOTE | 2019-07-23 11:56 | SSS ---
DATE OF SERVICE: 07/16/19 TRANSFERRED TO [facility] CHIEF COMPLAINT: Shortness of breath SOURCE OF HISTORY: The patient plus emergency room notes HISTORY OF PRESENT ILLNESS: The patient complained of some shortness of breath and cough since Monday, 3 days prior to presentation to the emergency room. The patient was lining up in the dining room and Dr. Ibarra the emergency room physician did see her and advised her to come to the emergency room because of the shortness of breath and indeed the patient did go to the emergency room. She was evaluated in the emergency room and was given DUO NEB nebulizer twice and Methylprednisolone 40mg IV plus oral Potassium 40meq. The patient also was given normal saline at 125cc an hour while at the emergency room. The CBC was unremarkable. The Atrial blood gasses showed slight alkalosis, respiratory with a pH was 7.534, pCO2 23.8, pO2 90, HCO3 20, total CO2 21, -3 Base excess on room air. The patient had CTA chest, no pulmonary embolism and no acute intrathoracic processes, hepatic steatosis. The patient was then discharged and subsequently seen at the office because of continued shortness of breath and was then advised admission because of the persistent shortness of breath and the patient is not able to spit out three words without taking another breath. PAST MEDICAL HISTORY: History of herniated disc Rheumatoid arthritis and received Remicade 4 weeks ago by the Publications Editor History of migraine History of mitral valve prolapse History of thyroid nodule History of cervical carcinoma History of degenerative disease of the spine Dyslipidemia Hypothyroidism GERD Breast nodule Hypertension Gastric ulcer History of herniated disc, cervical PAST SURGICAL HISTORY: Breast biopsy Appendectomy Cholecystectomy Mobile cyst right wrist probably Ganglion Previous D&C Endoscopy Hysterectomy Previous lift procedure prior to the total abdominal hysterectomy and BSO for carcinoma of the cervix Breast Augmentation Breast capsulectomy FAMILY HISTORY: Mother diabetes and and also had cancer and CVA Father heart disease and Sister renal failure and Another sister had CVA with diabetes mellitus and cancer Brother had from acute Crohn's disease Another brother had heart disease SOCIAL HISTORY: The patient is and resides alone and works at [employer]. She never did smoke. She never did drink any alcoholic substances. She denies any substance abuse. MEDICATIONS: Amlodipine 5mg daily Ascorbic acid 100mg daily Carvedilol 25mg twice a day Clonidine 0.1mg daily as needed Vitamin B12 injection weekly 1000mcg Diazepam 5mg at bedtime Vitamin D2 47324 international units monthly Mucinex LA 600mg twice a day Remicade every 6 weeks given 06/26/19 100mg Losartan 50mg twice a day Multivitamin one daily Naproxen 500mg twice a day PRN takes it occasionally Pantoprazole 40mg daily because of ulceration Sucralfate 1gram before each meals and at bedtime Imitrex 100mg PO PRN for headache Trintellix 20mg daily for depression ALLERGIES: No known drug allergies REVIEW OF SYSTEMS: CONSTITUTIONAL: Denies any fever or chills but has some fatigue because of the shortness of breath 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 VISUAL: Negative AUDITORY: The patient's hearing is adequate. Denies any pain in both ear or drainage. RESPIRATORY: The patient is short of breath and has audible wheezing. The patient is able to spit out three words but has to stop and take a deep breath. No history of hemoptysis. CARDIOVASCULAR: Denies any chest pain or chest tightness. GI: No abdominal pain. No diarrhea. : Denies any burning on urination. ENDOCRINE: Negative INTEGUMENT: Denies any rash, pruritus or ecchymosis. HEMATOLOGY: No history of prolonged bleeding or spontaneous bleeding. PSYCHIATRIC: The patient has a history of depression. MUSCULOSKELETAL: The patient has history of rheumatoid arthritis involving mostly the small joints. This patient is being followed by departmental buyer. PHYSICAL EXAMINATION: GENERAL: 53 year old female admitted to the hospital after examination at the office. She was examined initially at the emergency room. The patient's main problems is dyspnea, severe with difficulty talking because of air hunger. She does wheezing both anteriorly and posterior plus inspiratory plus expiratory with some rales at the base. HEAD: Unremarkable, scalp has no active dermatitis. FACE: Symmetrical and equal with no facial weakness. No significant tenderness to palpation under pressure in the frontal and maxillary sinus areas. MOUTH: Unremarkable. THROAT: No inflammation. No exudate. No tumors NECK: No masses and no bruit. Wheezing audible in both sides. LUNGS: Breath sounds are diminished with inspiratory plus expiratory wheeze anterior throughout as well as posteriorly with fine rales at the bases. CHEST: Symmetrical and equal with good expansion HEART: Audible, regular and slightly tachycardic. ABDOMEN: Protuberant, soft with no significant tenderness. Bowel sounds are active. No masses palpable. EXTERNAL GENITALIA: Not examined RECTAL: Not performed LOWER EXTREMITIES: Essentially symmetrical and equal with no significant edema. Pedal pulses are present. UPPER EXTREMITIES: Symmetrical and equal. ASSESSMENT: 1. Acute respiratory distress, etiology undetermined maybe viral 2. Mild hypertension 3. Sinus tachycardia 4. History of Rheumatoid arthritis on Remicade 4 weeks ago 5. History of depression on Trintellix 6. History of herniated disc 7. History of migraine 8. History of mitral valve prolapse 9. History of cervical carcinoma status post surgery 10.History of hypothyroidism, treated not on any medications 11.History GERD 12.History of gastric ulcer 13.Herniated disc, cervical 14.Elevated BMI COURSE IN THE HOSPITAL: The patient had tachycardia so the DUO NEB was discontinued and change to Xopenex. The patient also was given Pulmicort per nebulizer. The patient still has dyspnea as well as the wheezing. The patient on the next day 07/16/19 wishes to be transferred to a [facility]. She wanted to see a deputy sheriff chief. I told her that she could only be admitted not directly to a deputy sheriff chief but a hospitalist. I told her that I would proceed to discuss the case with the hospitalist. I discussed the case with the hospitalist and the continued respiratory distress. The RSV is positive. The chest CTA was negative for pulmonary emboli and any sign of pneumonic infiltrates. The hospitalist at [facility] [place] accepted the patient into his services. I did answer him whether the patient wanted to be transferred as a request and I did tell him that yes, the patient requested to be transferred but she also has a significant abnormality at this time. The patient was then transferred from [facility] to [facility] [place] by Ambulance. FINAL DIAGNOSIS: 1. Acute respiratory distress probably secondary to RSV infection 2. History of hypertension 3. History of rheumatoid disease, rheumatoid arthritis 4. History of migraines 5. History of mitral valve prolapse 6. History of cervical carcinoma status post total abdominal hysterectomy and BSO 7. History of GERD 8. History of gastric ulcer 9. History of cervical disc disease, herniated 10.History of obesity 11.History of depression PROGNOSIS: Guarded. MTDD
[2019-07-24] MEDS ORDERED: DRISDOL PO SCH (09:00)
== END 2019-07-16 22:15 | disposition short-term general hospital (02) | DRG 203 ==
LOC: MEDSURG B 15:38
PROVIDERS: ADMIT General Practice; ATTEND General Practice